=== PATIENT | female | born 1995 ===

== ENCOUNTER 2021-07-12 18:07 | Emergency (ER) | payer SELFPAY ==
[~2021-07-12] VITALS: Ht 154.9 cm; Wt 59.1 kg
[2021-07-12 18:09] VITALS: BP 145/92
== END 2021-07-12 21:30 | disposition left against medical advice (07) ==
LOC: EMS 18:10
DX: R45.851 Suicidal ideations (principal); Z53.21 Procedure and treatment not carried out due to patient leaving prior to being seen by health care provider